=== PATIENT | female | born 1995 | race Caucasian/White ===

== ENCOUNTER 2020-05-30 09:37 | Outpatient (CLI) | payer SELFPAY ==
[2020-05-30 21:24] LABS: SARS-CoV-2 MS2 Positive; SARS-CoV-2 N Gene Negative; SARS-CoV-2 S Gene Negative; SARS-CoV-2 by NAA Not Detected (NotDetected); SARS-CoV-2 orf1ab Negative
== END 2020-05-30 09:38 | disposition home or self-care (01) ==
LOC: LABBT 09:37
PROVIDERS: ATTEND Obstetrics & Gynecology
DX: Z01.812 Encounter for preprocedural laboratory examination (principal); Z20.822 Contact with and (suspected) exposure to COVID-19
CPT/HCPCS: 87635; U0003

== ENCOUNTER 2020-06-02 08:56 | Inpatient (IN) | payer OTHER, SELFPAY ==
[2020-06-02] MEDS: Lactated Ringer's 1,000 ML IV SCH ×2 (10:19→11:10)
[2020-06-02 10:43] VITALS: BMI 26.7
[2020-06-02] MEDS ORDERED: Ondansetron PF 4 MG/2 ML Vial IVP PRN ×2 (10:54→11:11)
[2020-06-02] MEDS ORDERED: hydrALAZINE 20 MG/ML VIAL SLOW IVP PRN (10:54)
[2020-06-02] MEDS ORDERED: Promethazine HCl 25 MG/ML VIAL IM PRN ×2 (10:54→11:11)
[2020-06-02] MEDS ORDERED: Bicitra 30 ML UDCUP PO PRN (10:54)
[2020-06-02] MEDS ORDERED: Famotidine/PF 20 mg/2ml Vial SLOW IVP PRN (10:54)
--- NOTE | 2020-06-02 10:57 | PDOC.LDHP ---
Labor and Delivery H&P HPI: 24 y/o at 39 weeks for repeat 2nd . Patient declines TOLAC. Due date: 06/09/20 Grav: 2 Para: 1 Current complications: none Abnormal US findings: No Current medications: pre-sol vitamins Previous surgical history: low tranverse CS Allergies/Adverse Reactions: Allergies Allergy/AdvReac Type Severity Reaction Status Date / Time No Known Allergies Allergy Unverified 06/02/20 10:46 Social history: none - Physical Exam Vital signs reviewed and normal: yes General: NAD Heart: RRR Lungs: CTAB Abdomen: gravid Extremeties: no edema FHT: category 1 - Assessment L&D Assessment: scheduled repeat section - Plan Plan: admit to L&D, to OR for section
[2020-06-02] MEDS ORDERED: CEFAZOLIN 2 GM in Premix Bag 1 BAG IVPB SCH (11:00)
[2020-06-02 11:04] LABS: Hemoglobin 12.9 g/dL (12.0-16.0); Mean Corpuscular HGB CONC 33.1 g/dL (32.0-36.0); Mean Corpuscular Hemoglobin 31.9 pg (27.0-31.0); Mean Corpuscular Volume 96.5 fL (78.0-98.0); Mean Platelet Volume 9.5 fL (7.4-10.4); Platelet Count 199 thou/uL (130-400); RBC Distribution Width 11.7 % (11.5-14.5); Red Blood Cell (RBC) Count 4.06 mill/uL (4.20-5.40); White Blood Cell (WBC) Count 10.6 thou/uL (4.8-10.8)
[2020-06-02] MEDS ORDERED: Ketorolac Tromethamine 30 MG/ML VIAL ONE ×2 (11:04→15:02)
[2020-06-02] MEDS ORDERED: PHENYLEPHRINE-NS 100 MCG/ML 10 ML SYRINGE ONE ×2 (11:04→12:16)
[2020-06-02] MEDS ORDERED: ePHEDrine 50 MG/ML VIAL ONE (11:04)
[2020-06-02] MEDS ORDERED: Ondansetron PF 4 MG/2 ML Vial ONE (11:04)
[2020-06-02] MEDS ORDERED: Oxytocin 10 UNITS/ML VIAL ONE ×2 (11:04→13:05)
[2020-06-02] MEDS ORDERED: Ondansetron HCl/PF 4 MG/2 ML Vial IVP PRN (11:11)
[2020-06-02] MEDS ORDERED: Promethazine HCl 25 MG SUPP PR PRN (11:11)
[2020-06-02] MEDS ORDERED: diphenhydrAMINE 50 MG/ML VIAL IVP PRN (11:11)
[2020-06-02] MEDS ORDERED: L&D-Morphine 4 MG/ML VIAL SLOW IVP PRN (11:11)
[2020-06-02] MEDS ORDERED: HYDROmorphone 2 MG/ML VIAL SLOW IVP PRN (11:11)
[2020-06-02] MEDS ORDERED: Meperidine HCl/PF 25 MG/ML VIAL SLOW IVP PRN (11:11)
[2020-06-02] MEDS ORDERED: Naloxone HCl 0.4 mg/ml Vial IVP PRN ×2 (11:11)
[2020-06-02] MEDS ORDERED: Communication Order-Pharmacy FS SCH (11:15)
[2020-06-02] MEDS ORDERED: Ketorolac Tromethamine 30 MG/ML VIAL IVP SCH (11:15)
[2020-06-02] MEDS ORDERED: Morphine PF 10 MG/10 ML VIAL ONE (11:28)
[2020-06-02 11:44] LABS: Syphilis Antibody Nonreactive (Nonreactive); Syphilis Antibody Index 0.03 S/CO (<1.00 Non-Reactive)
[2020-06-02 14:49] LABS: HBSAg Index 0.17 S/CO (0-0.99); Hep B Surf Ag Non-Reactive S/CO (NonReactive)
[2020-06-02] MEDS ORDERED: Meperidine HCl/PF 25 MG/ML VIAL ONE (14:57)
[2020-06-02] MEDS: Ketorolac Tromethamine 30 MG/ML VIAL IVP PRN ×2 (15:03→20:30)
[2020-06-02] MEDS ORDERED: FLU VACC QS2020-21(6MOS UP)/PF 60 MCG/0.5 ML SYRINGE IM ONE (21:00)
[2020-06-03] MEDS ORDERED: Sodium Chloride 0.9% 10 ML ONE ×3 (02:12→05:11)
[2020-06-03] MEDS: Ketorolac Tromethamine 30 MG/ML VIAL IVP PRN ×2 (02:19→12:33)
[2020-06-03] MEDS: Naloxone HCl 0.4 mg/ml Vial IV PRN ×3 (02:38→05:07)
[2020-06-03] MEDS ORDERED: Promethazine HCl 25 MG/ML VIAL IM PRN (11:08)
[2020-06-03] MEDS ORDERED: Bisacodyl 10 MG SUPP PR PRN (11:08)
[2020-06-03] MEDS ORDERED: hydrALAZINE 20 MG/ML VIAL SLOW IVP PRN (11:08)
[2020-06-03] MEDS ORDERED: Zolpidem Tartrate 5 MG TAB PO PRN (11:08)
[2020-06-03] MEDS ORDERED: Ondansetron PF 4 MG/2 ML Vial IVP PRN (11:08)
[2020-06-03] MEDS ORDERED: Preparation H Ointment 28 GM TUBE PR PRN (11:08)
[2020-06-03] MEDS ORDERED: Milk Of Magnesia 30 ML UDCUP PO PRN (11:08)
[2020-06-03] MEDS ORDERED: diphenhydrAMINE 25 MG CAP PO PRN (11:08)
[2020-06-03] MEDS ORDERED: HYDROcodone/Acetaminophen 5/325 mg Tablet PO PRN (11:08)
[2020-06-03] MEDS ORDERED: FLU VACC QS2020-21(6MOS UP)/PF 60 MCG/0.5 ML SYRINGE IM ONE (11:15)
[2020-06-03] MEDS ORDERED: NS w/ Oxytocin 30 units 1,000 ML IV SCH (13:00)
[2020-06-03] MEDS: Ibuprofen 800 MG TAB PO SCH ×2 (14:58→20:36)
[2020-06-03] MEDS: Ferrous Sulfate 325 MG TAB PO SCH (16:08)
[2020-06-03 19:35] LABS: #Eosinphils 0.1 thou/uL (0.0-0.7); #Lymphocytes 1.7 thou/uL (1.20-3.40); #Monocytes 0.6 thou/uL (0.11-0.59); #Neutrophils 8.5 thou/uL (1.40-6.50); %Basophils 0.3 % (0.0-1.0); %Eosinophils 0.9 % (0.0-10.0); %Lymphocytes 15.4 % (21.0-51.0); %Monocytes 5.7 % (0.0-10.0); %Neutrophils 77.7 % (42.0-75.0); Hemoglobin 10.6 g/dL (12.0-16.0); Mean Corpuscular HGB CONC 33.7 g/dL (32.0-36.0); Mean Corpuscular Hemoglobin 32.7 pg (27.0-31.0); Mean Corpuscular Volume 97.1 fL (78.0-98.0); Mean Platelet Volume 8.8 fL (7.4-10.4); Platelet Count 191 thou/uL (130-400); RBC Distribution Width 11.9 % (11.5-14.5); Red Blood Cell (RBC) Count 3.26 mill/uL (4.20-5.40)
[2020-06-03] MEDS: Docusate Calcium (SURFAK) 240 MG CAP PO SCH (20:36)
[2020-06-03] MEDS: HYDROcodone/Acetaminophen 5/325 mg Tablet PO PRN (21:59)
[2020-06-04] MEDS: Ibuprofen 800 MG TAB PO SCH ×2 (06:00→13:33)
[2020-06-04] MEDS: HYDROcodone/Acetaminophen 5/325 mg Tablet PO PRN ×4 (06:00→19:27)
[2020-06-04] MEDS: Docusate Calcium (SURFAK) 240 MG CAP PO SCH (08:11)
[2020-06-04] MEDS: Ferrous Sulfate 325 MG TAB PO SCH ×2 (08:12→16:58)
[2020-06-04] MEDS ORDERED: Varicella virus, LIVE 0.5 ML VIAL SC ONE (09:00)
[2020-06-04] MEDS ORDERED: Prenatal Vitamin 1 TAB PO SCH (09:00)
[2020-06-04] MEDS ORDERED: Measles/Mumps/Rubella 10 MCG/0.5 ML VIAL SC ONE (09:00)
[2020-06-04] MEDS ORDERED: Adacel (T-DAP) 0.5 ML SYRINGE IM ONE (09:00)
--- NOTE | 2020-06-04 20:40 | PDOC.PP ---
Post Progress Note Post Day #: 2 PO intake tolerated: yes Flatus: yes Ambulation: yes Vital Signs (12 hours) Temp Pulse Resp BP Pulse Ox 06/04/20 11:39 97.7 F 108 H 20 131/69 99 Weight Weight 151 lb - Physical Examination General: NAD Cardiovascular: no m/r/g, RRR Respiratory: clear to auscultation bilaterally, non-labored breathing Abdominal: + bowel sounds, lochia, no distention, appropriately TTP Extremities: negative homans (B) Neurological: no gross focal deficits Psychiatric: A&Ox3, normal affect (Small wound separation draining clear fluid. No sign of infection. Dermabon used to glue this area closed. Rx for Duricef 500mg BID x 7days send into [facility], along with NORCO and MOTRIN. F/U next week in clinic.) Result Diagrams: 06/03/20 19:15 Additional Labs: Post Labs Hep Bs Antigen Non-Reactive S/CO (NonReactive) 06/02/20 10:05 Blood Type O POSITIVE 06/02/20 10:05
--- NOTE | 2020-06-04 20:40 | PDOC.PP ---
Post Progress Note Post Day #: 1 PO intake tolerated: yes Flatus: yes Ambulation: yes Vital Signs (12 hours) Temp Pulse Resp BP Pulse Ox 06/04/20 11:39 97.7 F 108 H 20 131/69 99 Weight Weight 151 lb - Physical Examination General: NAD Cardiovascular: no m/r/g, RRR Respiratory: clear to auscultation bilaterally, non-labored breathing Abdominal: + bowel sounds, lochia, no distention, appropriately TTP Extremities: negative homans (B) Skin: CS incision dry & intact, no rash Neurological: no gross focal deficits Result Diagrams: 06/03/20 19:15 Additional Labs: Post Labs Hep Bs Antigen Non-Reactive S/CO (NonReactive) 06/02/20 10:05 Blood Type O POSITIVE 06/02/20 10:05
[2020-06-04 20:48] VITALS: BP 119/68; TEMP 97.9
--- NOTE | 2020-06-05 13:10 | DIS ---
DATE OF ADMISSION: 06/02/2020 DATE OF DISCHARGE: 06/04/2020 ADMISSION: 06/02/2020 at 1035. DISCHARGE: 06/04/2020 at 2125. ADMISSION DIAGNOSES: Intrauterine at 39 weeks, scheduled for repeat low-transverse section. The patient was discharged to home on postoperative day two after having an uneventful hospital course. She did have some small amount of drainage from the central portion of her incision, which was re-glued prior to discharge with good result and no further leakage. Close clinical followup was arranged for her incision and her overall care. She received prescriptions for hydrocodone with acetaminophen as well as for ibuprofen which were called to her pharmacy. Infection and bleeding precautions were reviewed. The patient was discharged in stable condition on postoperative day 2 to home accompanied by her . Job ID: [id number]
--- NOTE | 2020-06-05 13:10 | OP ---
DATE OF PROCEDURE: 06/02/2020 TIME: 1226 Central Standard Time. PREOPERATIVE DIAGNOSIS: Intrauterine at 39 weeks with a scheduled repeat low-transverse section. POSTOPERATIVE DIAGNOSIS: Intrauterine at 39 weeks with a scheduled repeat low-transverse section. PROCEDURE: Repeat second low transverse section. FINDINGS: Viable male weighing 3150 g or 6 pounds 15 ounces with Apgars of 8 and 9. QUANTITATIVE BLOOD LOSS: 440 mL. COMPLICATIONS: None. DETAILS OF THE PROCEDURE: The patient was consented and taken back to the operating room where spinal anesthesia was found to be adequate. She was then prepped and draped in the normal sterile fashion. A timeout was performed by the entire operative team. The incision was then marked with a marking pen tested using sharp pickups. An incision was then made with a scalpel. The incision was carried through the adipose tissue down to the underlying rectus fascia using both sharp dissection as well as cautery. Once the fascia was identified, it was incised in the midline and then the fascial incision was carried through in both lateral directions using sharp as well as cautery dissection techniques. Next, the superior aspect of the rectus fascia was grasped with 2 Nichol clamps, which was tented up and the rectus muscles were dissected off using blunt dissection as well as cautery dissection. Similarly, the inferior aspect of the fascial incision was grasped with 2 Nichol clamps, tented up and the rectus muscles were dissected off bluntly as well as sharply. Next, the rectus muscles were in the midline and the peritoneum identified. The peritoneum was then carefully grasped with 2 hemostats and entered sharply. The peritoneal incision was extended superiorly and inferiorly and bladder blade was placed in the lower abdomen. At this point, the uterus was identified and the bladder flap was then developed using pickups with teeth as well as Metzenbaum scissors in both lateral directions. The bladder flap was then dissected downwards using the catalyst manufacturing operator's finger as well as Metzenbaum scissors. The bladder blade was replaced. The lower uterine segment was then identified and entered sharply using a clean scalpel. The uterine incision was then dissected downwards until thin layer of muscle remained and this was entered bluntly using a hemostat to avoid any injury to the baby. The uterine incision was then stretched using two fingers in both lateral directions. An amniotomy was performed artificially using a hemostat and the baby was delivered using fundal pressure in a gentle fashion. Once out, the baby's mouth and nose were bulb suctioned, cord clamped and cut, and the baby was handed to waiting attendants. Next, the uterus was exteriorized, cleared of all clots and debris and the uterine incision was repaired with #1 Monocryl in a running locking fashion. A 2nd suture of the same type was used to obtain complete hemostasis at the uterine incision. The bladder flap was reapproximated using 3-0 Monocryl. Next, patient's left and right adnexa were inspected and appeared to be within normal limits. The posterior cul-de-sac was blotted dry and hemostasis assured. One more look at the uterine incision demonstrated hemostasis. Next, the uterus was replaced back within the abdomen. The peritoneum was reapproximated using 2-0 Monocryl without difficulty. The rectus muscles were then allowed to come back together and 0 chromic was used to aid in reapproximation of the muscle as necessary. The rectus fascia was then reapproximated in a running fashion using 0 Vicryl suture. The adipose tissue was then examined and appeared to be well approximated without any obvious separations. Finally, the skin was reapproximated with 3-0 Monocryl on a Harish needle without difficulty and Dermabond adhesive was applied to the skin. Once the glue was dry, the drapes were removed and the patient was transferred to an ambulatory bed where she was taken to recovery awake and in stable condition. Sponge, lap, and needle counts were correct x3. Job ID: [id number]
== END 2020-06-04 21:25 | disposition home or self-care (01) | DRG 788 ==
LOC: L&D 10:35 → 3SW 16:30
PROVIDERS: ADMIT Obstetrics & Gynecology; ATTEND Obstetrics & Gynecology
PROC: 10D00Z1 Extraction of Products of Conception, Low, Open Approach (ICD-10-PCS; principal; 2020-06-02)
DX: O34.211 Maternal care for low transverse scar from previous cesarean delivery (principal); Z3A.39 39 weeks gestation of pregnancy; Z37.0 Single live birth; Z20.822 Contact with and (suspected) exposure to COVID-19
CPT/HCPCS: 36415; 51702; 85025; 85027; 86780; 86850; 86900; 86901; 87340; J0690; J1885; J2175; J2270; J2310; J2405; J3490